=== PATIENT | female | born 1990 | race Caucasian/White ===

== ENCOUNTER → 2018-05-29 15:05 | Outpatient (CLI) | payer OTHER, SELFPAY ==
[2018-05-29 17:13] LABS: Absolute Lymphocyte Count 1.44 X10^3/ul (0.83-4.51); Absolute Neutrophil Count 5.1 X10^3/uL (2.0-7.7); Basophil# 0.02 X10^3/uL; Basophil% 0.3 % (0-1); Eosinophil# 0.17 X10^3/uL; Eosinophils% 2.4 % (0-5); Hematocrit 38.1 % (37-47); Hemoglobin 12.8 g/dl (12.0-15.0); Lymphocyte # 1.44 X10^3/ul (4.0); Lymphocyte % 19.9 % (19-41); Mean Corp Hgb Conc 33.6 g/gl (32-36); Mean Corpuscular Volume 95.3 fL (81-99); Mean Platelet Vol. 10.1 fl (6.2-12.0); Monocyte# 0.46 X10^3/uL; Monocyte% 6.4 % (0-10); Neutrophil # 5.14 X10^3/uL (2.7-7.7); Platelet Count 250 K/mm3 (150-450); RBC Distribution Width CV 11.7 % (11.6-14.6); RBC Distribution Width SD 40.4 fl (35.1-43.9); White Blood Count 7.2 K/mm3 (4.4-11.0)
[2018-05-29 17:14] LABS: POSITIVE COUNT NO; POSITIVE DIFFERENTIAL NO; POSITIVE MORPHOLOGY NO
[2018-05-30 05:04] LABS: Chlamydia Trachomatis by PCR Negative (Negative); Neisserai gonorrhoeae by PCR Negative (Negative); Probe Check PASS; Sample Adequacy Control PASS; Specimen Processing Control PASS
[2018-05-30 09:10] LABS: HIV - WCH Non-Reactive (Nonreactive); Rubella IgG 162.4 IU/mL
[2018-06-01 01:02] LABS: Rapid Plasmin Reagin (RPR) NONREACTIVE (NONREACTIVE)
[2018-06-01 12:07] LABS: HCV Quant. RNA PCR HCV Not Detected IU/mL (.)
[2018-06-01 13:23] LABS: HEPATITIS B SURFACE AG Negative (Negative)
[2018-06-06 11:33] LABS: HPV APTIMA, High Risk Negative (Negative)
[2018-06-06 11:41] LABS: HPV Reflexed? YES, CHARGE PATIENT
== END ==
PROVIDERS: Visit Provider Nurse Practitioner Women's Health
DX: O09.90 Supervision of high risk pregnancy, unspecified, unspecified trimester (principal); Z12.4 Encounter for screening for malignant neoplasm of cervix
CPT/HCPCS: 85025; 86592; 86703; 86762; 86850; 86900; 87086; 87088; 87340; 87491; 87522; 87591; 87624; 88175; G0145

== ENCOUNTER → 2018-10-11 15:58 | Outpatient (CLI) | payer OTHER, SELFPAY ==
[2018-10-11 17:38] LABS: Absolute Lymphocyte Count 1.56 X10^3/ul (0.83-4.51); Absolute Neutrophil Count 5.9 X10^3/uL (2.0-7.7); Basophil# 0.01 X10^3/uL; Basophil% 0.1 % (0-1); Eosinophil# 0.09 X10^3/uL; Eosinophils% 1.1 % (0-5); Hematocrit 31.5 % (37-47); Hemoglobin 10.4 g/dl (12.0-15.0); Lymphocyte # 1.56 X10^3/ul (4.0); Lymphocyte % 19.5 % (19-41); Mean Corpuscular Volume 96.9 fL (81-99); Mean Platelet Vol. 9.2 fl (6.2-12.0); Monocyte# 0.47 X10^3/uL; Monocyte% 5.9 % (0-10); Neutrophil # 5.85 X10^3/uL (2.7-7.7); Neutrophil % 73.3 % (47-70); Platelet Count 273 K/mm3 (150-450); RBC Distribution Width CV 12.3 % (11.6-14.6); RBC Distribution Width SD 43.5 fl (35.1-43.9); Red Blood Count 3.25 M/mm3 (4.2-5.4)
[2018-10-11 17:46] LABS: POSITIVE COUNT NO; POSITIVE DIFFERENTIAL NO; POSITIVE MORPHOLOGY NO
[2018-10-11 18:03] LABS: Glucose Challenge Gest 1H 50g 125 mg/dL (70-140)
== END ==
PROVIDERS: Referring Provider Nurse Practitioner Women's Health; Visit Provider Nurse Practitioner Women's Health
DX: O09.90 Supervision of high risk pregnancy, unspecified, unspecified trimester (principal)
CPT/HCPCS: 36415; 82950; 85025

== ENCOUNTER → 2018-11-09 12:15 | Outpatient (CLI) | payer OTHER, SELFPAY ==
--- NOTE | 2018-11-09 12:18 | US_ITS ---
STUDY: SECOND AND THIRD TRIMESTER OBSTETRICAL ULTRASOUND - LIMITED REASON FOR EXAM: Female, 28 years old. Routine survey. LMP: March 31, 2018. PRIOR ULTRASOUND: None. TECHNIQUE: Transabdominal TECHNICAL QUALITY: Adequate. FINDINGS: There is a single intrauterine fetus. The fetus is in a cephalic presentation. There is demonstrated cardiac activity with a heart rate of 156-165 bpm. There is a normal amniotic fluid volume. The largest amniotic fluid pocket measures 3.0 cm x 4.6 cm. The amniotic fluid index (DIANNA) is 6.1 cm. This is lower limits of normal. The placenta is posterior in location and is not low lying. There are Grade 0 placental changes. The cervix measures 4.3 cm in length. BIOMETRY: BPD: 7.45 cm: 30 weeks, 0 days HC: 27.8 cm: 30 weeks, 3 days AC: 27.49 cm: 31 weeks, 4 days FL: 5.92 cm: 31 weeks, 0 days Age by LMP: 31 weeks, 6 days. RENO by LMP: January 05, 2019. age by current US: 30 weeks, 6 days. RENO by current US: January 12, 2019. Estimated weight: 1698 grams, +/- 248 grams, 18 percentile. Gender: Indeterminant US/OB Limited With Biometrics IMPRESSION: Single live intrauterine gestation with a mean gestational age of 30 weeks and 6 days. Amniotic fluid index is lower limits of normal. The referring physician was notified of the results. Electronically Signed: Ghassan Fleming MD at 13:27 EST , Service support ,
== END ==
PROVIDERS: Referring Provider Nurse Practitioner Women's Health; Visit Provider Nurse Practitioner Women's Health
DX: O36.5990 Maternal care for other known or suspected poor fetal growth, unspecified trimester, not applicable or unspecified (principal); Z3A.00 Weeks of gestation of pregnancy not specified
CPT/HCPCS: 76816

== ENCOUNTER → 2018-11-16 13:20 | Outpatient (CLI) | payer OTHER, SELFPAY ==
--- NOTE | 2018-11-16 13:26 | US_ITS ---
STUDY: SECOND AND THIRD TRIMESTER OBSTETRICAL ULTRASOUND - LIMITED REASON FOR EXAM: Female, 28 years old. well-being. Borderline normal amniotic fluid index. LMP: March 31, 2018. PRIOR ULTRASOUND: Comparison is made with prior examination dated November 09, 2018. TECHNIQUE: Transabdominal TECHNICAL QUALITY: Adequate. FINDINGS: There is a single intrauterine fetus. The fetus is in a cephalic presentation. There is demonstrated cardiac activity with a heart rate of 149/165 bpm. There is a normal amniotic fluid volume. The largest amniotic fluid pocket measures 3.8 cm x 1.7 cm. The amniotic fluid index (DIANNA) is 9.5 cm. The placenta is fundal in location. There are Grade 0 placental changes. The cervix measures 6.0 cm in length. US/OB Limited (No Biometrics) IMPRESSION: Amniotic fluid index of 9.5 cm. This is in the 10th percentile. Electronically Signed: Ghassan Fleming MD at 8:43 EST , Service support ,
== END ==
PROVIDERS: Referring Provider Obstetrics & Gynecology; Visit Provider Obstetrics & Gynecology
DX: O28.8 Other abnormal findings on antenatal screening of mother (principal); Z3A.00 Weeks of gestation of pregnancy not specified
CPT/HCPCS: 76815

== ENCOUNTER → 2018-12-11 09:04 | Outpatient (CLI) | payer OTHER, SELFPAY ==
[2018-12-07 13:46] VITALS: BMI 25.4
--- NOTE | 2018-12-11 09:05 | US_ITS ---
STUDY: SECOND AND THIRD TRIMESTER OBSTETRICAL ULTRASOUND - LIMITED REASON FOR EXAM: Female, 28 years old. Routine survey. LMP: March 31, 2018. PRIOR ULTRASOUND: Comparison is made with prior study dated November 16, 2018. TECHNIQUE: Transabdominal TECHNICAL QUALITY: Adequate. FINDINGS: There is a single intrauterine fetus. The fetus is in a cephalic presentation. There is demonstrated cardiac activity with a heart rate of 118 bpm. The largest amniotic fluid pocket measures 2.2 cm x 3.8 cm. The amniotic fluid index (DIANNA) is 6.5 cm. This is in the lower limits of normal for 36 weeks and 3 days. The placenta is posterior and fundal. There are Grade 1 placental changes. The cervix measures 3.8 cm in length. BIOMETRY: BPD: 8.29 cm: 33 weeks, 3 days HC: 31.27 cm: 35 weeks, 1 days AC: 31.5 cm: 35 weeks, 4 days FL: 6.78 cm: 34 weeks, 6 days Age by LMP: 36 weeks, 3 days. RENO by LMP: January 05, 2019.. age by prior US: 35 weeks, 3 days. RENO by prior US: January 12, 2019. age by current US: 34 weeks, 6 days. RENO by current US: January 16, 2019. Estimated weight: 2570 grams, +/- 375 grams, 18 percentile. Gender: Indeterminant US/OB Limited With Biometrics IMPRESSION: Single live uterine gestation with a mean gestational age of 35 weeks and 3 days. The measurements obtained today following the normal expected range. The amniotic fluid index is within lower limits of normal. Electronically Signed: Ghassan Fleming, at 15:52 EST , Service support ,
== END ==
PROVIDERS: Referring Provider Obstetrics & Gynecology; Visit Provider Obstetrics & Gynecology
DX: O09.90 Supervision of high risk pregnancy, unspecified, unspecified trimester (principal)
CPT/HCPCS: 76816

== ENCOUNTER → 2018-12-14 17:11 | Outpatient (CLI) | payer OTHER, SELFPAY ==
[2018-12-14 11:55] VITALS: BMI 25.4
== END ==
PROVIDERS: Referring Provider Obstetrics & Gynecology; Visit Provider Obstetrics & Gynecology
DX: O09.90 Supervision of high risk pregnancy, unspecified, unspecified trimester (principal); Z3A.00 Weeks of gestation of pregnancy not specified
CPT/HCPCS: 87081

== ENCOUNTER → 2018-12-18 14:01 | Outpatient (CLI) | payer OTHER, SELFPAY ==
[2018-12-07 13:46] VITALS: BMI 25.4
[2018-12-14 11:55] VITALS: BMI 25.4
--- NOTE | 2018-12-18 14:03 | US_ITS ---
STUDY: SECOND AND THIRD TRIMESTER OBSTETRICAL ULTRASOUND - LIMITED REASON FOR EXAM: Female, 28 years old. Assessment of the amniotic fluid index. LMP: March 31, 2018. PRIOR ULTRASOUND: Comparison is made with prior study dated December 11, 2018. TECHNIQUE: Transabdominal TECHNICAL QUALITY: Adequate. FINDINGS: There is a single intrauterine fetus. The fetus is in a cephalic presentation. There is demonstrated cardiac activity with a heart rate of 135 bpm. There is a normal amniotic fluid volume. The largest amniotic fluid pocket measures 3.7 cm x 4.9 cm. The amniotic fluid index (DIANNA) is 8.6 cm. The placenta is fundal and posterior in location. There are Grade 2 placental changes. The cervix measures 2.9 cm in length. Age by LMP: 37 weeks, 3 days. RENO by LMP: January 05, 2019. age by prior US: 36 weeks, 3 days. RENO by prior US: January 12, 2019. US/OB Limited (No Biometrics) IMPRESSION: The amniotic fluid is normal for the gestational age. Electronically Signed: Ghassan Fleming, at 16:00 EST , Service support ,
== END ==
PROVIDERS: Referring Provider Obstetrics & Gynecology; Visit Provider Obstetrics & Gynecology
DX: O28.0 Abnormal hematological finding on antenatal screening of mother (principal); O41.90X0 Disorder of amniotic fluid and membranes, unspecified, unspecified trimester, not applicable or unspecified; Z3A.00 Weeks of gestation of pregnancy not specified
CPT/HCPCS: 76815

== ENCOUNTER 2018-12-28 14:40 | Outpatient (CLI) | payer OTHER, SELFPAY ==
[2018-12-27 16:27] VITALS: BMI 25.4
--- NOTE | 2018-12-28 11:01 | US_ITS ---
STUDY: SECOND AND THIRD TRIMESTER OBSTETRICAL ULTRASOUND - LIMITED REASON FOR EXAM: Female, 28 years old. Routine survey. LMP: March 31, 2018. PRIOR ULTRASOUND: Comparison is made with prior study dated December 18, 2018. TECHNIQUE: Transabdominal TECHNICAL QUALITY: Adequate. FINDINGS: There is a single intrauterine fetus. The fetus is in a cephalic presentation. There is demonstrated cardiac activity with a heart rate of 139 bpm. There is a normal amniotic fluid volume. The largest amniotic fluid pocket measures 2.2 cm x 2.9 cm. The amniotic fluid index (DIANNA) is 8.2 cm. The placenta is fundal and posterior in location. There are Grade 2 placental changes. The cervix measures 3.4 cm in length. BIOMETRY: BPD: 9.1 cm: 36 weeks, 6 days HC: 32.9 cm: 37 weeks, 3 days AC: 31.5 cm: 35 weeks, 3 days FL: 7.2 cm: 36 weeks, 6 days Age by LMP: 38 weeks, 6 days. RENO by LMP: January 05, 2019. age by prior US: 37 weeks, 2 days. RENO by prior US: January 16, 2019. age by current US: 36 weeks, 5 days. RENO by current US: January 20, 2019. Estimated weight: 2856 grams, +/- 417 grams, 10 percentile. US/OB Limited With Biometrics IMPRESSION: Single live uterine gestation with a mean gestational age of 37 weeks and 2 days. The fetus falls within the 10 percentile. Electronically Signed: Ghassan Fleming, at 12:41 EDT , Service support ,
[2018-12-28 15:44] VITALS: BMI 26.6
--- NOTE | 2018-12-31 02:58 | OB.TRI.PN_ITS ---
Progress Notes Date of Service: 12/28/18 Progress Note: nst secondary to IUGR fht 130 moderate variability reactive no decelerations category I tracing [place]: regular dc home kick counts plan IOL 39 weeks
== END 2018-12-28 16:10 | disposition home or self-care (01) ==
LOC: OPUS 14:45 → WPOUT 14:46 → WP 14:47
PROVIDERS: Referring Provider Obstetrics & Gynecology; Visit Provider Obstetrics & Gynecology
DX: O36.5990 Maternal care for other known or suspected poor fetal growth, unspecified trimester, not applicable or unspecified (principal); Z3A.00 Weeks of gestation of pregnancy not specified
CPT/HCPCS: 59025; 76816

== ENCOUNTER 2018-12-29 11:35 | Inpatient (IN) | payer OTHER, SELFPAY ==
[2018-12-28 15:44] VITALS: BMI 26.6
[2018-12-29 11:44] VITALS: BMI 26.9
[2018-12-29] MEDS: Lactated Ringers 1,000 ML 50 ML IV ×3 (12:05→21:09)
[2018-12-29 12:28] LABS: Hemoglobin 11.3 g/dl (12.0-15.0); Mean Corp Hgb Conc 33.2 g/gl (32-36); Mean Corpuscular Hgb 32.1 pg (27.0-32.0); Mean Corpuscular Volume 96.6 fL (81-99); Mean Platelet Vol. 9.6 fl (6.2-12.0); Platelet Count 229 K/mm3 (150-450); RBC Distribution Width CV 13.2 % (11.6-14.6); Red Blood Count 3.52 M/mm3 (4.2-5.4); White Blood Count 7.8 K/mm3 (4.4-11.0)
[2018-12-29 12:33] LABS: Scan Indicated on CBC? Y/N NO
[2018-12-29] MEDS: Oxytocin 30 units/NS 500 ml 30 UNITS/500 ML IV.SOLN IV (13:08)
[2018-12-29] MEDS: fentaNYL-bupivacaine (epidural) 100 ML BAG EPIDURAL (18:56)
--- NOTE | 2018-12-29 19:37 | PCM.HP.OB ---
- Problem List (1) Anemia affecting Status: Acute Qualifiers: Comment: check cbc at 36 weeks (2) Status: Acute Qualifiers: Comment: genetic, carrier, and NTD screening declined. anatomy US normal. (3) Supervision of high-risk Status: Acute Qualifiers: Comment: PRR RENO 01/05/19 girl Ashutosh PC:Jose Spouse:Silvino (4) History of LEEP (loop electrosurgical excision procedure) of cervix complicating Status: Acute Qualifiers: Comment: check cervical length at us/normal US History Date of Admission: 12/29/18 Final RENO: 01/05/19 Gestational age: 39 Weeks and 0 Days History of this : This is a 28 year-old, at 39 weeks gestational age presents with IOL for IUGER> she denies any vb lof good fm no regular ctx. Medical History: Medical History (Last Reviewed 12/27/18 @ 16:27 by Pallavi Shen) Abnormal Pap smear of cervix R87.619 Surgical History: Surgical History (Last Reviewed 12/27/18 @ 16:27 by Pallavi Shen) S/P LEEP Z98.890 S/P left knee surgery Z98.890 reconstructive Allergies casein Allergy (Mild, Verified 12/28/18 15:47) fatigue, migraines, acne whey Allergy (Mild, Verified 12/28/18 15:47) fatigue, migraines, acne Home Medications: Home Medications docosahexanoic acid 200 mg capsule 1 tab PO DAILY 05/29/18 ferrous sulfate 325 mg (65 mg iron) tablet 325 mg PO DAILY tab 10/26/18 Smoking Status: Never smoker Number of Fetus(es): 1 Heart Tracin-120 moderate variability reactive no decelerations category I tracing [place]: regular History Past Pregnancies: Past Pregnancies previous uncomplicated Labs: Mom's Labs & Results 12/29/18 12/29/18 12:05 12:05 WBC 7.8 RBC 3.52 L Hgb 11.3 L Hct 34.0 L MCV 96.6 MCH 32.1 H MCHC 33.2 RDW 13.2 RDW Differential 46.0 H Plt Count 229 MPV 9.6 Blood Type B POSITIVE Antibody Screen NEGATIVE Course Did the patient receive Yes care? Labs Blood Type: B RH: POSITIVE RPR/VDRL/Syphilis Nonreactive Rubella status Immune HbSAg Negative Date Done: 05/29/18 Chlamydia Negative Gonorrhea Negative HIV/AIDS Non-Reactive Group B Strep: Negative Current Obstetrical History Gestational Diabetes No Incompetent Cervix No Infertility No IUGR Yes Macrosomia No Hypertension/Pre-eclampsia No Placenta Previa/Abruption No PTL/PROM No Uterine anomaly No Oligohydramnios No: borderline off and on Polyhydramnios No Multiple gestation No Past Medical History Asthma No Diabetes No Hypertension No Heart disease No Mitral valve prolapse No Neurologic/Seizure disorder/ No Migraines Kidney disease No Liver disease No Varicosities No Clotting disorders/Hx of DVT No Thyroid Dysfunction No Other medical diseases No Psychiatric disorders No Major trauma No Abnormal PAP smear No Sleep apnea No Mammogram in the last 2 years No Social History Marital Status: Alleged father silvino malagon Hx Smoking No Smoking Status Never smoker Expected Delivery Method: Spontaneous Vaginal Review of Systems Constitutional: Denies: Fever, Malaise Eyes: Denies: Blurred vision, Vision Change HEENT: Denies: Head Aches, Visual Changes Cardiovascular: Denies: Chest Pain, Palpitations Respiratory: Denies: Cough, Shortness of Breath, Wheezing Gastrointestinal: Denies: Abdominal Pain, Diarrhea, Nausea, Vomiting Genitourinary: Denies: Dysuria, Hematuria Musculoskeletal: Denies: Joint Pain, Muscle pain Skin: Denies: Lesions, Rash Neurological: Denies: Blurred vision, Focal weakness, Headaches Psychiatric: Denies: Anxiety, Depression Endocrine: Denies: Heat/ Cold Intolerance Hematologic/ Lymphatic: Denies: Easy Bruising, Easy Bleeding Physical Exam General: Alert, Cooperative, No apparent distress HEENT: Atraumatic, Normocephalic. Negative for: Thyromegaly, Lymphadenopathy Cardiovascular: Regular rate Lungs: Normal air movement Abdomen: Soft, Non Tender, Gravid Neurological: Deep Tendon Reflexes 2+/4 and Symmetrical, Neuro grossly intact. Negative for: Clonus [employer]: Normal external genitalia. Negative for: Vulvar lesions Estimated gestational size: Appropriate for gestational size Presentation: Cephalic Assessment/Plan All Active Problems (Last Reviewed 12/27/18 @ 16:27 by Pallavi Shen) Anemia affecting (Acute) (Acute) Supervision of high-risk (Acute) History of LEEP (loop electrosurgical excision procedure) of cervix complicating (Acute) This is a 28 year-old, , at 39 weeks gestational age presents IOL iugr Patient presents IOL, plan management for , pitocin/AROM now. Pain management: epidural. GBS negative. Management of any complications: IUGR I have reviewed the [facility] and made any clinically relevant updates.
[2018-12-29] MEDS: fentaNYL 100 MCG/2 ML Ampul IV (23:19)
[2018-12-29] MEDS: Oxytocin 30 units/NS 500 ml 30 UNITS/500 ML IV.SOLN 334 UNITS IV (23:35)
--- NOTE | 2018-12-29 23:49 | PCM.OB.VAG ---
- Problem List (1) Anemia affecting Status: Acute Qualifiers: Comment: check cbc at 36 weeks (2) Status: Acute Qualifiers: Comment: genetic, carrier, and NTD screening declined. anatomy US normal. (3) Supervision of high-risk Status: Acute Qualifiers: Comment: PRR RENO 01/05/19 girl Ashutosh PC:Jose Spouse:Silvino (4) History of LEEP (loop electrosurgical excision procedure) of cervix complicating Status: Acute Qualifiers: Comment: check cervical length at us/normal US Vaginal Delivery Maternal Presentation: Medically Indicated Induction iol iugr Amniotic Membrane Rupture Type: Spontaneous Amniotic Fluid Description: Clear Final RENO: 01/05/19 Gestational age: 39 Weeks and 0 Days Date of Procedure: 12/29/18 Pre-Operative Diagnosis: iol iugr Post-Operative Diagnosis: same Surgery/ Procedure Performed: Spontaneous Vaginal Delivery Type of Anesthesia: Epidural Description of Procedure: Patient began pushing and delivered the head in the JOSE presentation. The head was delivered atraumatically. The anterior and posterior shoulders delivered without complication followed by the rest of the infant and the was placed on the maternal abdomen. Delayed cord clamping was employed for approximately 60 seconds. Cord was clamped and cut and gentle traction was applied to the cord and the placenta delivered spontaneously immediately following it was noted to be intact with three-vessel cord. The perineum and vagina were inspected and noted to have no laceration. EBL was 100 cc. Patient and infant tolerated delivery well. Presentation: JOSE Placental Delivery Description: Spontaneous Placenta Disposition: [facility] Cord Vessel Description: 3 Vessels Estimated Blood Loss: 100 Infant A gender: Female Episiotomy Description: None Laceration: None Medications given after delivery: IV Pitocin Complications: None
[2018-12-30] MEDS: Oxytocin 30 units/NS 500 ml 30 UNITS/500 ML IV.SOLN 167 UNITS IV (00:05)
[2018-12-30 04:40] VITALS: BP 109/62; PULSE 89; RESP 16; TEMP 36.4; O2SAT 95
[2018-12-30] MEDS: Naproxen 250 MG Tablet PO ×3 (06:41→23:59)
[2018-12-30 07:30] VITALS: BP 92/57; PULSE 77; RESP 16; TEMP 37.5; O2SAT 96
[2018-12-30] MEDS: Ferrous Sulfate 325 MG Tablet PO (08:04)
[2018-12-30 12:30] VITALS: BP 95/60; PULSE 87; RESP 16; TEMP 36.6
--- NOTE | 2018-12-30 13:30 | PCM.PN.OB ---
Subjective: doing well no complaints pain controlled no CP SOB N V ambulating well tolerating po lochia moderate, going well - Physical Exam General: Alert, Oriented x3 Vital Signs Temp Pulse Resp BP Pulse Ox 99.5 F H 77 16 92/57 L 96 12/30/18 07:30 12/30/18 07:30 12/30/18 07:30 12/30/18 07:30 12/30/18 07:30 Oxygen Delivery Method Room Air Weight: 151 lb 10.848 oz Body Mass Index (BMI) 26.9 Intake and Output for Last 24 Hours 12/28/18 12/29/18 12/30/18 23:59 23:59 23:59 Intake Total 2200 / 2200 800 / 800 Output Total 600 / 600 1100 / 1100 Balance 1600 / 1600 -300 / -300 Medical Necessity - Tobacco Use Smoking Status: Never smoker Assessment/Plan All Active Problems (Last Reviewed 12/27/18 @ 16:27 by Pallavi Shen) Anemia affecting (Acute) (Acute) Supervision of high-risk (Acute) History of LEEP (loop electrosurgical excision procedure) of cervix complicating (Acute) s/p PPD # 1 1. routine post delivery care 2. breast feeding- support given 3. rh positive 4. rubella immune
[2018-12-30] MEDS: Prenatal Vits Tablet 1 TABLET PO (13:32)
[2018-12-30] MEDS: Acetaminophen 500 MG Tablet 1000 MG PO (13:33)
[2018-12-30 17:00] VITALS: BP 110/78; PULSE 76; RESP 16; TEMP 36.4
[2018-12-30] MEDS: Senna/Docusate Sodium 1 Tablet PO (19:57)
[2018-12-30 20:00] VITALS: BP 117/44; PULSE 67; RESP 17; TEMP 36.4
[2018-12-30 23:55] VITALS: BP 103/63; PULSE 71; RESP 17; TEMP 36.5
[2018-12-31 04:15] VITALS: BP 101/59; PULSE 69; RESP 16; TEMP 36.6
--- NOTE | 2018-12-31 07:29 | PCM.PN.OB ---
Subjective: doing well no complaints pain controlled no CP SOB N V ambulating well tolerating po lochia moderate, bottle feeding. Plans home today - Physical Exam General: Alert, Oriented x3 Abdomen: Soft, Non Tender, - - FF below U Vital Signs Temp Pulse Resp BP Pulse Ox 97.8 F 69 16 101/59 L 96 12/31/18 04:15 12/31/18 04:15 12/31/18 04:15 12/31/18 04:15 12/30/18 07:30 Oxygen Delivery Method Room Air Weight: 151 lb 10.848 oz Body Mass Index (BMI) 26.9 Intake and Output for Last 24 Hours 12/29/18 12/30/18 12/31/18 23:59 23:59 23:59 Intake Total 2200 / 2200 800 / 800 Output Total 600 / 600 1100 / 1100 Balance 1600 / 1600 -300 / -300 Medical Necessity - Tobacco Use Smoking Status: Never smoker Assessment/Plan All Active Problems (Last Reviewed 12/27/18 @ 16:27 by Pallavi Shen) Anemia affecting (Acute) (Acute) Supervision of high-risk (Acute) History of LEEP (loop electrosurgical excision procedure) of cervix complicating (Acute) s/p PPD # 2 1. routine post delivery care 2. rh positive 3. rubella immune 4. Home today
--- NOTE | 2018-12-31 07:31 | DCINST_ITS ---
Additional Instructions: If you experience any of the following, contact your healthcare provider. * Bleeding that soaks a pad every hour for 2 hours * Fever 100.4 or higher * Unrelieved incision or abdominal pain * Swelling, redness, discharge or bleeding from your incision or episiotomy site * Your incision begins to separate * Problems urinating (including inability to urinate or burning while urinating). * Visual changes * Severe headache * Flu-like symptoms * Pain or redness in one of both of your breasts * Pain, warmth, tenderness or swelling in your legs, especially the calf area * Frequent nausea and vomiting * Symptoms of depression or anxiety If you experience any of the following, call 911 or go to the nearest Emergency Room. * Chest pain * Problems breathing * Seizure activity * Partial or complete paralysis of a body part, slurred speech, weakness or drooping of the face, or a sudden inability to walk or hold your balance Allergies/Adverse Reactions: Allergies casein Allergy (Mild, Verified 12/28/18 15:47) fatigue, migraines, acne whey Allergy (Mild, Verified 12/28/18 15:47) fatigue, migraines, acne Medications to take at Discharge docosahexanoic acid 200 mg capsule 1 tab PO DAILY 05/29/18 ferrous sulfate 325 mg (65 mg iron) tablet 325 mg PO DAILY tab 10/26/18 Primary Care Physician: Care Physician,No Primary [Primary Care Provider] - Test Results: Test results from this visit will be discussed in further detail at your follow- up appointment, if applicable.
--- NOTE | 2018-12-31 07:31 | PCM.DCVAG ---
Additional Instructions: If you experience any of the following, contact your healthcare provider. Bleeding that soaks a pad every hour for 2 hours Fever 100.4 or higher Unrelieved incision or abdominal pain Swelling, redness, discharge or bleeding from your incision or episiotomy site Your incision begins to separate Problems urinating (including inability to urinate or burning while urinating). Visual changes Severe headache Flu-like symptoms Pain or redness in one of both of your breasts Pain, warmth, tenderness or swelling in your legs, especially the calf area Frequent nausea and vomiting Symptoms of depression or anxiety If you experience any of the following, call 911 or go to the nearest Emergency Room. Chest pain Problems breathing Seizure activity Partial or complete paralysis of a body part, slurred speech, weakness or drooping of the face, or a sudden inability to walk or hold your balance Allergies/Adverse Reactions: Allergies casein Allergy (Mild, Verified 12/28/18 15:47) fatigue, migraines, acne whey Allergy (Mild, Verified 12/28/18 15:47) fatigue, migraines, acne Medications to take at Discharge docosahexanoic acid 200 mg capsule 1 tab PO DAILY 05/29/18 ferrous sulfate 325 mg (65 mg iron) tablet 325 mg PO DAILY tab 10/26/18 Primary Care Physician: Care Physician,No Primary [Primary Care Provider] - Test Results: Test results from this visit will be discussed in further detail at your follow-up appointment, if applicable.
[2018-12-31 08:00] VITALS: BP 92/54; PULSE 77; RESP 20; TEMP 36.7
[2018-12-31] MEDS: Prenatal Vits Tablet 1 TABLET PO (12:12)
[2018-12-31] MEDS: Naproxen 250 MG Tablet PO (12:12)
[2018-12-31] MEDS: Ferrous Sulfate 325 MG Tablet PO (12:12)
--- NOTE | 2019-01-08 17:12 | NURSING ---
Mother had some questions about her bleeding on follow up phone call, states odor but no fever. will call OB doctor if increased pain or fever or if not continuing to decrease. States is able to wear her pad 3-4 hours and is wearing a smaller pad. States her labor nurse was awesome but cannot remember her name.
== END 2018-12-31 12:40 | disposition home or self-care (01) | DRG 807 ==
PROVIDERS: Admitting Provider Obstetrics & Gynecology; Referring Provider Obstetrics & Gynecology; Visit Provider Obstetrics & Gynecology
DX: O36.5930 Maternal care for other known or suspected poor fetal growth, third trimester, not applicable or unspecified (principal); Z37.0 Single live birth; O99.02 Anemia complicating childbirth; D64.9 Anemia, unspecified; Z3A.39 39 weeks gestation of pregnancy
CPT/HCPCS: 59025; 59050; 85027; 86850; 86900; 99218; J7120; G0378

== ENCOUNTER 2019-01-12 15:53 | Day surgery (SDC) | payer OTHER, SELFPAY ==
[2019-01-12] VITALS (11 sets, daily range): BP systolic 92–109; BP diastolic 53–84; PULSE 63–133; RESP 12–18; TEMP 36.7–37; O2SAT 97–100; BMI 22.3; BMI 23.0
--- NOTE | 2019-01-12 | POC_PTH ---
PATIENT: KEIKO SOSA [place] [facility] [place][id number] AGE/SX: 28/F ROOM: RE01/12/[address]: Dr. Katerina Bedoya MD : 1990 BED: DIS: 01/13/2019 SPEC #: [id number] RECD: 01/14/19 07:14 STATUS: KISHORE TESSA #: [id number] TAYLA: 01/12/19 00:[address]: Katerina Howard DEPT: SURGICAL PATHOLOGY RECD BY: Lasha Samano ENTERED: 01/14/19 09:20 SP TYPE: PROD CONC OTHR DR: No Primary Care Phys Tissues: Product of conception, NOS Procedures: Surgery Specimen Level IV HEADER OPERATION: Dilation and curettage, suction PRE-OP DIAGNOSIS: Retained products of conception, two weeks TISSUE SUBMITTED: Retained products of conception MICROSCOPIC DIAGNOSIS Retained products of conception: Fragments of blood clots and inflamed endometrium and superficial myometrium. Placental tissue is not identified. See comment. WANDA:kassie 01/15/19 COMMENT Clinical correlation and appropriate follow up are necessary. MICROSCOPIC DESCRIPTION Slides are reviewed. GROSS DESCRIPTION Received in fixative is one container labeled with the patient's name and designated retained products of conception. The specimen consists of multiple fragments of hemorrhagic dark pugh soft tissue that in aggregate measure 10.5 x 10 x 2 cm. parts are not grossly recognized. [place] portions are submitted in three cassettes. / AM:kassie 01/14/19 TC:5 CPT: 44820
--- NOTE | 2019-01-12 16:30 | US_ITS ---
STUDY: ULTRASOUND TRANSVAGINAL CLINICAL: Female, 28 years old. VERY HEAVY BLEEDING 2 WEEKS POST TECHNIQUE: Transabdominal and Transvaginal COMPARISON: None. FINDINGS: Anteverted uterus which is enlarged measuring 13.3 x 9.4 x 7.2 cm. No uterine masses are seen. Heterogeneous and very thickened endometrial echoes measuring 4.4 cm. Findings may represent retained products of conception. No endometrial fluid. Normal uterine cervix. Right ovary is not seen. Normal left ovary, measuring 3.7 x 2.0 x 1.8 cm. There are multiple follicles without a dominant cyst. There is mild free fluid in the pelvis. US/Transvaginal Non- IMPRESSION: Heterogeneous thickened endometrial echoes, possible retained products. Electronically Signed: Marc Maguire MD at 19:19 EDT , Service support ,
--- NOTE | 2019-01-12 16:31 | ED.VISSUMM ---
- ER Visit Summary Date of Service: 01/12/19 Chief Complaint: vaginal bleeding History of Present Illness: The patient is a 28 F who presents for vaginal bleeding that started this morning. Patient had a uncomplicated vaginal delivery 2 weeks ago. Patient has had no issues until this morning when she began having severe intermittent cramping and heavy vaginal bleeding with large clots. Patient is soaking greater than 1 pad in less than an hour. Patient is having lightheadedness. She has a history of anemia at baseline. Patient tried Aleve for the crampy pain. She states it feels like a bad menstrual cramps. She denies any fever, chest pain, shortness of breath, nausea or vomiting. Physical Examination: Vital signs: afebrile, tachycardic, blood pressure on the low end of normal, no hypoxia on room air General: well nourished, well developed, in no distress Skin: warm, dry, no rash, skin is pale but conjunctivae are pink HEENT: normocephalic and atraumatic; PERRL, EOMI, moist mucous membranes Cardiovascular: Tachycardic rate and rhythm without murmurs, no peripheral edema, 2+ pulses all distal extremities Respiratory: No increased work of breathing, lungs are clear to auscultation bilaterally, no rales, rhonchi or wheezing Abdominal: Abdomen is soft, nontender with normoactive bowel sounds, no guarding or rebound, no masses : MSK: Moves all extremities, no deformities, normal strength Neuro: Awake and alert, oriented ?4. No facial droop, sensation and motor function intact and symmetric Test Results: Abnormal Lab Results 01/12/19 01/12/19 01/12/19 16:17 16:17 16:17 WBC 13.4 H RBC 4.33 Hgb 13.6 Hct 40.9 MCV 94.5 MCH 31.4 MCHC 33.3 RDW 12.0 RDW Differential 40.9 Plt Count 398 MPV 9.5 Immature Gran % (Auto) 0.300 Neut % (Auto) 78.7 H Lymph % (Auto) 15.[address] [place] % (Auto) 4.0 Eos % (Auto) 1.0 Baso % (Auto) 0.1 Absolute Neuts (auto) 10.6 H Absolute Lymphs (auto) 2.13 Total Counted Not Reportable PT INR APTT Fibrinogen Sodium 139 Potassium 3.6 Chloride 109 H Carbon Dioxide 22.0 Anion Gap 8 BUN 16 Creatinine 0.93 Estim Creat Clear Calc 77.08 Est GFR (MDRD) Af Amer 92 Est GFR (MDRD) Non-Af 76 BUN/Creatinine Ratio 17.2 Glucose 143 H Calcium 8.4 L Blood Type B POSITIVE A1 Antigen Typing Rho(D) Type Antibody Screen Crossmatch 01/12/19 01/12/19 01/12/19 16:17 16:17 23:00 WBC 10.5 RBC 3.06 L Hgb 9.9 L Hct 29.6 L MCV 96.7 MCH 32.4 H MCHC 33.4 RDW 12.3 RDW Differential 43.2 Plt Count 280 MPV 9.0 Immature Gran % (Auto) Neut % (Auto) Lymph % (Auto) [place] % (Auto) Eos % (Auto) Baso % (Auto) Absolute Neuts (auto) Absolute Lymphs (auto) Total Counted PT INR APTT Fibrinogen Sodium Potassium Chloride Carbon Dioxide Anion Gap BUN Creatinine Estim Creat Clear Calc Est GFR (MDRD) Af Amer Est GFR (MDRD) Non-Af BUN/Creatinine Ratio Glucose Calcium Blood Type Cancelled Cancelled A1 Antigen Typing Cancelled Cancelled Rho(D) Type Cancelled Cancelled Antibody Screen NEGATIVE Cancelled Crossmatch See Detail 01/12/19 23:10 WBC RBC Hgb Hct MCV MCH MCHC RDW RDW Differential Plt Count MPV Immature Gran % (Auto) Neut % (Auto) Lymph % (Auto) [place] % (Auto) Eos % (Auto) Baso % (Auto) Absolute Neuts (auto) Absolute Lymphs (auto) Total Counted PT 17.0 H INR 1.4 APTT 30.9 Fibrinogen 182 L Sodium Potassium Chloride Carbon Dioxide Anion Gap BUN Creatinine Estim Creat Clear Calc Est GFR (MDRD) Af Amer Est GFR (MDRD) Non-Af BUN/Creatinine Ratio Glucose Calcium Blood Type A1 Antigen Typing Rho(D) Type Antibody Screen Crossmatch Clinical Impression(s) from Imaging Studies Transvaginal US 01/12/19 16:30 IMPRESSION: Heterogeneous thickened endometrial echoes, possible retained products. Electronically Signed: Marc Maguire MD at 19:19 EDT , Service support , Medications Given Ketorolac Tromethamine (Toradol) 15 mg IV X1 ONE Stop: 01/12/19 16:52 Last Admin: 01/12/19 17:13 Dose: 15 mg Misoprostol (Cytotec) 800 mcg RECTAL X1 ONE Stop: 01/12/19 17:26 Last Admin: 01/12/19 17:38 Dose: 800 mcg Morphine Sulfate () 4 mg IV X1 ONE Stop: 01/12/19 17:28 Last Admin: 01/12/19 17:32 Dose: 4 mg Ondansetron HCl (Zofran) 4 mg IV TID PRN PRN PRN Reason: NAUSEA Emergency Department Course and Treatment: Patient was offered and declined pain medication. Lab work performed including type and screen and CBC. Patient did require pain medication for worsening pain and was given Toradol. Pelvic exam performed and showed a large amount of blood in the vaginal vault and large clots. Blood and clots were suctioned out, and steady oozing of blood was noted at the cervix. No vaginal lacerations noted. After the pelvic exam, patient's pain worsened and she was given morphine. Pelvic ultrasound performed to look for any retained products of conception did show heterogenous material in the uterus concerning for retained products of conception. Dr. Martine Bedoya had been consulted and recommended giving rectal misoprostol, and on reevaluation, patient did not have any improvement in the bleeding. Patient was admitted to Dr. Martinez for emergent D&C. Treatment Plan: [] Disposition: [] Impression: Heavy vaginal bleeding, retained products of conception This note was generated with [employer] software. It may contain incorrect words, spelling, and punctuation that were not noted in review of the chart prior to signing ED Disposition - Plan for ED Patient: Disposition: Acute Care Hospital [facility]
[2019-01-12 16:40] LABS: Absolute Lymphocyte Count 2.13 X10^3/ul (0.83-4.51); Absolute Neutrophil Count 10.6 X10^3/uL (2.0-7.7); Basophil# 0.02 X10^3/uL; Basophil% 0.1 % (0-1); Eosinophil# 0.13 X10^3/uL; Hematocrit 40.9 % (37-47); Hemoglobin 13.6 g/dl (12.0-15.0); Lymphocyte # 2.13 X10^3/ul (4.0); Lymphocyte % 15.9 % (19-41); Mean Corp Hgb Conc 33.3 g/gl (32-36); Mean Corpuscular Hgb 31.4 pg (27.0-32.0); Mean Corpuscular Volume 94.5 fL (81-99); Mean Platelet Vol. 9.5 fl (6.2-12.0); Monocyte# 0.54 X10^3/uL; Neutrophil # 10.55 X10^3/uL (2.7-7.7); Neutrophil % 78.7 % (47-70); Platelet Count 398 K/mm3 (150-450); RBC Distribution Width SD 40.9 fl (35.1-43.9); Red Blood Count 4.33 M/mm3 (4.2-5.4); White Blood Count 13.4 K/mm3 (4.4-11.0)
[2019-01-12 16:43] LABS: POSITIVE COUNT NO; POSITIVE DIFFERENTIAL NO; POSITIVE MORPHOLOGY NO
[2019-01-12 16:51] LABS: Anion Gap 8 (5-15); BUN 16 mg/dL (7-18); BUN/Creat Ratio 17.2 RATIO (10-20); Calcium,Total 8.4 mg/dL (8.5-10.1); Chloride 109 mmol/L (98-107); Creatinine, Serum 0.93 mg/dL (0.55-1.02); EST Glomerular Filtration Rate 76 mL/min (>60); Est Glom Filt Rate - Afr Amer 92 mL/min (>60); Estimated Creatinine Clearance 77.08 ml/min; Glucose 143 mg/dL (74-106); Potassium 3.6 mmol/L (3.5-5.1); Sodium Level 139 mmol/L (136-145)
[2019-01-12] MEDS: Ketorolac 15 MG/ML Vial IV (17:13)
[2019-01-12] MEDS: Morphine 4 MG/ML Syringe IV (17:32)
[2019-01-12] MEDS: miSOPROStol 200 MCG Tablet 800 MCG RECTAL (17:38)
--- NOTE | 2019-01-12 21:14 | PCM.HP.OB ---
- Problem List (1) Delayed hemorrhage Status: Acute (2) Retained products of conception with hemorrhage Status: Acute History Date of Admission: 12/29/18 History of this : This is a 28 year-old, G 2 P2 presents day 12 status post uncomplicated spontaneous vaginal delivery now with heavy vaginal bleeding. She reports heavy bleeding with increasing flow over the last week and earlier today began to pass large clots. She had blood through 3 maternity pads in an hour. She called the nurse practitioner on-call who advised her to come to the ER for further evaluation. The patient did report some lightheadedness now resolved. Denies chest pain, shortness of breath, palpitations. She does feel drained and fatigued. No weakness. She had severe cramping which has now subsided. She had a dose of 800 mcg of Cytotec per rectum in the ER. She notes that bleeding is worsened on standing and ambulation. Her infant is doing well. She is bottlefeeding. Medical History: Medical History (Last Reviewed 12/27/18 @ 16:27 by Pallavi Shen) Abnormal Pap smear of cervix R87.619 Surgical History: Surgical History (Last Reviewed 12/27/18 @ 16:27 by Pallavi Shen) S/P LEEP Z98.890 S/P left knee surgery Z98.890 reconstructive Allergies casein Allergy (Mild, Verified 12/28/18 15:47) fatigue, migraines, acne whey Allergy (Mild, Verified 12/28/18 15:47) fatigue, migraines, acne Home Medications: Home Medications docosahexanoic acid 200 mg capsule 1 tab PO DAILY 05/29/18 ferrous sulfate 325 mg (65 mg iron) tablet 325 mg PO DAILY tab 10/26/18 Smoking Status: Never smoker Alcohol: None History Past Pregnancies: Diagnostic Data Transvaginal US 01/12/19 16:30 IMPRESSION: Heterogeneous thickened endometrial echoes, possible retained products. Electronically Signed: Marc Maguire MD at 19:19 EDT , Service support , Labs: Mom's Labs & Results 01/12/19 01/12/19 01/12/19 16:17 16:17 16:17 WBC 13.4 H RBC 4.33 Hgb 13.6 Hct 40.9 MCV 94.5 MCH 31.4 MCHC 33.3 RDW 12.0 RDW Differential 40.9 Plt Count 398 MPV 9.5 Immature Gran % (Auto) 0.300 Neut % (Auto) 78.7 H Lymph % (Auto) 15.9 L [place] % (Auto) 4.0 Eos % (Auto) 1.0 Baso % (Auto) 0.1 Absolute Neuts (auto) 10.6 H Absolute Lymphs (auto) 2.13 Total Counted Not Reportable Sodium 139 Potassium 3.6 Chloride 109 H Carbon Dioxide 22.0 Anion Gap 8 BUN 16 Creatinine 0.93 Estim Creat Clear Calc 77.08 Est GFR (MDRD) Af Amer 92 Est GFR (MDRD) Non-Af 76 BUN/Creatinine Ratio 17.2 Glucose 143 H Calcium 8.4 L Blood Type B POSITIVE Antibody Screen 01/12/19 16:17 WBC RBC Hgb Hct MCV MCH MCHC RDW RDW Differential Plt Count MPV Immature Gran % (Auto) Neut % (Auto) Lymph % (Auto) [place] % (Auto) Eos % (Auto) Baso % (Auto) Absolute Neuts (auto) Absolute Lymphs (auto) Total Counted Sodium Potassium Chloride Carbon Dioxide Anion Gap BUN Creatinine Estim Creat Clear Calc Est GFR (MDRD) Af Amer Est GFR (MDRD) Non-Af BUN/Creatinine Ratio Glucose Calcium Blood Type Antibody Screen Pending Social History Alleged father pato malagon Hx Smoking No Smoking Status Never smoker Review of Systems Constitutional: Reports: Fatigue. Denies: Fever, Weakness Cardiovascular: Denies: Chest Pain, Light Headedness, Palpitations Respiratory: Denies: Shortness of Breath Gastrointestinal: Denies: Abdominal Pain, Nausea, Vomiting Gynecological: Reports: Vaginal bleeding Physical Exam Vitals: Vital Signs Temp Pulse Resp BP Pulse Ox 98.0 F 75 12 101/84 H 100 01/12/19 15:55 01/12/19 21:01 01/12/19 21:01 01/12/19 21:01 01/12/19 21:01 General: Alert, Oriented x3, Cooperative, No apparent distress HEENT: Atraumatic, Normocephalic Cardiovascular: Regular rate, Regular Rhythm, Normal S1, Normal S2 Lungs: Clear to auscultation, Normal air movement Abdomen: Soft, Non Tender, Non-Distended, - - Perineal pad moderately saturated Extremities:: No edema Neurological: Neuro grossly intact Assessment/Plan All Active Problems (Last Reviewed 12/27/18 @ 16:27 by Pallavi Shen) Delayed hemorrhage (Acute) Retained products of conception with hemorrhage (Acute) Anemia affecting (Acute) (Acute) Supervision of high-risk (Acute) History of LEEP (loop electrosurgical excision procedure) of cervix complicating (Acute) This is a 28 year-old, G [2], P [2] admitted with delayed hemorrhage with retained products of conception -hemodynamically stable. -Pelvic exam performed by ED Attending demonstrating copious blood clots on admission. -US reviewed with thickened endometrium c/w retained POCs. Findings discussed with patient and her . I advised her to proceed with suction dilatation and curettage. We discussed how the procedure is performed as well as risks including pain, uterine infection, uterine perforation with possible abdominal viscus injury or vascular injury requiring laparotomy or hysterectomy, scarring with possible hematometra, retained products of conception requiring additional medical management or repeat dilation and curettage. Benefits and alternatives of procedure were reviewed. Discussed anticipated postop recovery course. Patient desired to proceed and indicated blood transfusion was acceptable if necessary medically. -Consent signed. -Maintain n.p.o. -Nursing esters and emulsifiers supervisor and anesthesiology notified. Will await arrival of OR team to proceed with procedure. Code Visit Office Visits / Consults: [id number] OP Consult L3
--- NOTE | 2019-01-12 21:17 | ED.RN ---
REPORT GIVEN MICHELLE MAGAÑA.
--- NOTE | 2019-01-12 21:18 | HP.PCM_ITS ---
- Problem List (1) Delayed hemorrhage Status: Acute (2) Retained products of conception with hemorrhage Status: Acute History Date of Admission: 12/29/18 History of this : This is a 28 year-old, G 2 P2 presents day 12 status post uncomplicated spontaneous vaginal delivery now with heavy vaginal bleeding. She reports heavy bleeding with increasing flow over the last week and earlier today began to pass large clots. She had blood through 3 maternity pads in an hour. She called the nurse practitioner on-call who advised her to come to the ER for further evaluation. The patient did report some lightheadedness now resolved. Denies chest pain, shortness of breath, palpitations. She does feel drained and fatigued. No weakness. She had severe cramping which has now subsided. She ruiz d a dose of 800 mcg of Cytotec per rectum in the ER. She notes that bleeding is worsened on standing and ambulation. Her infant is doing well. She is bottlefeeding. Medical History: Medical History (Last Reviewed 12/27/18 @ 16:27 by Pallavi Shen) Abnormal Pap smear of cervix R87.619 Surgical History: Surgical History (Last Reviewed 12/27/18 @ 16:27 by Pallavi Shen) S/P LEEP Z98.890 S/P left knee surgery Z98.890 reconstructive Allergies casein Allergy (Mild, Verified 12/28/18 15:47) fatigue, migraines, acne whey Allergy (Mild, Verified 12/28/18 15:47) fatigue, migraines, acne Home Medications: Home Medications docosahexanoic acid 200 mg capsule 1 tab PO DAILY 05/29/18 ferrous sulfate 325 mg (65 mg iron) tablet 325 mg PO DAILY tab 10/26/18 Smoking Status: Never smoker Alcohol: None History Past Pregnancies: Diagnostic Data Transvaginal US 01/12/19 16:30 IMPRESSION: Heterogeneous thickened endometrial echoes, possible retained products. Electronically Signed: Marc Maguire MD at 19:19 EDT , Service support , Labs: Mom's Labs & Results 01/12/19 01/12/19 01/12/19 16:17 16:17 16:17 WBC 13.4 H RBC 4.33 Hgb 13.6 Hct 40.9 MCV 94.5 MCH 31.4 MCHC 33.3 RDW 12.0 RDW Differential 40.9 Plt Count 398 MPV 9.5 Immature Gran % (Auto) 0.300 Neut % (Auto) 78.7 H Lymph % (Auto) 15.9 L [place] % (Auto) 4.0 Eos % (Auto) 1.0 Baso % (Auto) 0.1 Absolute Neuts (auto) 10.6 H Absolute Lymphs (auto) 2.13 Total Counted Not Reportable Sodium 139 Potassium 3.6 Chloride 109 H Carbon Dioxide 22.0 Anion Gap 8 BUN 16 Creatinine 0.93 Estim Creat Clear Calc 77.08 Est GFR (MDRD) Af Amer 92 Est GFR (MDRD) Non-Af 76 BUN/Creatinine Ratio 17.2 Glucose 143 H Calcium 8.4 L Blood Type B POSITIVE Antibody Screen 01/12/19 16:17 WBC RBC Hgb Hct MCV MCH MCHC RDW RDW Differential Plt Count MPV Immature Gran % (Auto) Neut % (Auto) Lymph % (Auto) [place] % (Auto) Eos % (Auto) Baso % (Auto) Absolute Neuts (auto) Absolute Lymphs (auto) Total Counted Sodium Potassium Chloride Carbon Dioxide Anion Gap BUN Creatinine Estim Creat Clear Calc Est GFR (MDRD) Af Amer Est GFR (MDRD) Non-Af BUN/Creatinine Ratio Glucose Calcium Blood Type Antibody Screen Pending Social History Alleged father pato malagon Hx Smoking No Smoking Status Never smoker Review of Systems Constitutional: Reports: Fatigue. Denies: Fever, Weakness Cardiovascular: Denies: Chest Pain, Light Headedness, Palpitations Respiratory: Denies: Shortness of Breath Gastrointestinal: Denies: Abdominal Pain, Nausea, Vomiting Gynecological: Reports: Vaginal bleeding Physical Exam Vitals: Vital Signs Temp Pulse Resp BP Pulse Ox 98.0 F 75 12 101/84 H 100 01/12/19 15:55 01/12/19 21:01 01/12/19 21:01 01/12/19 21:01 01/12/19 21:01 General: Alert, Oriented x3, Cooperative, No apparent distress HEENT: Atraumatic, Normocephalic Cardiovascular: Regular rate, Regular Rhythm, Normal S1, Normal S2 Lungs: Clear to auscultation, Normal air movement Abdomen: Soft, Non Tender, Non-Distended, - - Perineal pad moderately saturated Extremities:: No edema Neurological: Neuro grossly intact Assessment/Plan All Active Problems (Last Reviewed 12/27/18 @ 16:27 by Pallavi Shen) Delayed hemorrhage (Acute) Retained products of conception with hemorrhage (Acute) Anemia affecting (Acute) (Acute) Supervision of high-risk (Acute) History of LEEP (loop electrosurgical excision procedure) of cervix complicating (Acute) This is a 28 year-old, G [2], P [2] admitted with delayed hemorrhage with retained products of conception -hemodynamically stable. -Pelvic exam performed by ED Attending demonstrating copious blood clots on admission. -US reviewed with thickened endometrium c/w retained POCs. Findings discussed with patient and her . I advised her to proceed with suction dilatation and curettage. We discussed how the procedure is performed as well as risks including pain, uterine infection, uterine perforation with possible abdominal viscus injury or vascular injury requiring laparotomy or hysterectomy, scarring with possible hematometra, retained products of conception requiring additional medical management or repeat dilation and curettage. Benefits and alternatives of procedure were reviewed. Discussed anticipated postop recovery course. Patient desired to proceed and indicated blood transfusion was acceptable if necessary medically. -Consent signed. -Maintain n.p.o. -Nursing steffen house supervisor and anesthesiology notified. Will await arrival of OR team to proceed with procedure. Code Visit Office Visits / Consults: [id number] OP Consult L3
[2019-01-12] MEDS: Methylergonovine 0.2 MG/ML Ampul IM (22:40)
[2019-01-12 23:18] LABS: Hematocrit 29.6 % (37-47); Hemoglobin 9.9 g/dl (12.0-15.0); Mean Corp Hgb Conc 33.4 g/gl (32-36); Mean Corpuscular Hgb 32.4 pg (27.0-32.0); Mean Corpuscular Volume 96.7 fL (81-99); Platelet Count 280 K/mm3 (150-450); RBC Distribution Width CV 12.3 % (11.6-14.6); RBC Distribution Width SD 43.2 fl (35.1-43.9); Red Blood Count 3.06 M/mm3 (4.2-5.4); Scan Indicated on CBC? Y/N NO; White Blood Count 10.5 K/mm3 (4.4-11.0)
--- NOTE | 2019-01-12 23:22 | PCM.OPRPT ---
Problem List (1) Delayed hemorrhage Status: Acute (2) Retained products of conception with hemorrhage Status: Acute Report of Operation Date of Procedure: 01/12/19 Pre-Operative Diagnosis: Delayed hemorrhage Post-Operative Diagnosis: Delayed hemorrhage Surgery/Procedure Performed:: Suction dilation and curettage Type of Anesthesia:: Local MAC Anesthesiologist: Darin Wynne Specimen's removed: Products of conception Estimated Blood Loss (mL): 500 Fluids Replaced: 1000ml Description of Procedure: Indications: Patient is a 28-year-old para 2 who presents 12 days status post uncomplicated spontaneous vaginal delivery with delayed hemorrhage. Ultrasound findings suggested retained products of conception. She was counseled on management options and opted to proceed with suction dilation and curettage. Risks, benefits, indications, alternatives of procedure were reviewed. Informed consent was obtained. Procedure: The patient was taken to the operating room and Center was performed. She is placed in the dorsal supine position and induced under MAC. She was then repositioned to dorsolithotomy examination under anesthesia performed. The perineum was prepped and draped in sterile fashion straight catheterization of the bladder performed. With a speculum placed into the vagina cervix grasped the anterior cervical lip using a single-tooth tenaculum. Paracervical block was placed using a total of 20 cc of 1% lidocaine with 1 and 100,000 epinephrine. The cervix was notably dilated approximately 1-1/2 cm. Suction curettage was performed using the 11 mm curved curette retrieving scant tissue with abundant clot. This was followed by sharp curettage retrieving clots however on repeat suction curettage blood and clots were again obtained. Vigorous bimanual uterine massage was performed the patient was given a single dose of of IM Methergine. Bedside ultrasound was then performed demonstrating reaccumulation of hematometra. I did attempt to reduce it once again using the sharp curettage under ultrasound guidance however he could see the uterus refill partially with blood. It was again evacuated from the uterus using suction and a 28 [place] Muhammad catheter was placed and filled with 30 cc of normal saline to provide urine [place] nod. There is no evidence of clot reaccumulation on ultrasound after Muhammad placement. A leg bag was attached. The procedure was completed. The tenaculum was removed from the cervix and tenaculum site was hemostatic. The speculum was removed from the vagina. The patient was placed in the dorsal supine position, awakened and transferred to the recovery room without other complication. Sponge counts were correct x2. The patient tolerated the procedure well. - Complications None - Admit VTE Documentation VTE Present on Admission: No VTE Mechan Device Prophylaxis: None VTE Pharm Prophylaxis ordered?: No
[2019-01-12 23:33] LABS: International Normalized Ratio 1.4
[2019-01-12 23:34] LABS: Partial Thromboplast Time 30.9 Seconds (24.1-36.2)
[2019-01-12 23:38] LABS: Fibrinogen 182 mg/dl (203-444)
[2019-01-13] VITALS (18 sets, daily range): BP systolic 82–133; BP diastolic 47–82; PULSE 54–111; RESP 16–18; TEMP 36.4–37.5; O2SAT 95–100
[2019-01-13] MEDS: 0.9% Normal Saline 1,000 ML 125 ML IV (06:35)
[2019-01-13 07:01] LABS: Hematocrit 23.8 % (37-47); Mean Corp Hgb Conc 33.6 g/gl (32-36); Mean Corpuscular Hgb 32.4 pg (27.0-32.0); Mean Corpuscular Volume 96.4 fL (81-99); Mean Platelet Vol. 9.2 fl (6.2-12.0); Platelet Count 201 K/mm3 (150-450); RBC Distribution Width CV 12.3 % (11.6-14.6); RBC Distribution Width SD 43.4 fl (35.1-43.9); Red Blood Count 2.47 M/mm3 (4.2-5.4); Scan Indicated on CBC? Y/N NO
--- NOTE | 2019-01-13 08:49 | PCM.PN.OB ---
Patient Problems: Active and Suspected Problems (Last Reviewed 12/27/18 @ 16:27 by Pallavi Shen) Delayed hemorrhage (Acute) Retained products of conception with hemorrhage (Acute) Subjective: Patient reports lightheadedness on ambulating this morning. Denies palpitations, shortness of breath or chest pain. She denies heavy bleeding overnight. Nurse indicated patient had not voided overnight. Objective: AVSS - Physical Exam General: Alert, Oriented x3, Cooperative, No apparent distress HEENT: Atraumatic, Normocephalic Lungs: Clear to auscultation, Normal air movement Cardiovascular: Regular rate, Regular Rhythm, Normal S1, Normal S2 Abdomen: Soft, Non Tender, Non-Distended Extremities: No edema, No Calf Tenderness Neurological: Neuro grossly intact Psych/Mental Status: Normal Affect, Appropriate, Alert and oriented to time, place, person, mood and affect Comment: Scant blood in uterine brooks - approx 10 cc. Vital Signs Temp Pulse Resp BP Pulse Ox 97.6 F L 73 16 88/54 L 98 01/13/19 08:23 01/13/19 08:42 01/13/19 08:23 01/13/19 08:42 01/13/19 08:23 Oxygen Delivery Method Room Air Weight: 58.967 kg Body Mass Index (BMI) 23.0 Orthostatic Vital Signs Start: 01/13/19 08:42 Freq: q24h Status: Active Protocol: Activity Type Activity Date Activity User E-Sign Co-Sign Detail Recorded Client Recorded Date Recorded By Document 01/13/19 08:42 TDW [id number] 01/13/19 08:43 TDW 01/13/19 08:42 Orthostatic Vitals Standing -Blood Pressure (90/60-120/80 mm Hg) 133/82 H -Extremity Use Left Arm -Pulse Rate (60-100 beats/min) 54 L Sitting -Blood Pressure (90/60-120/80 mm Hg) 91/54 L -Extremity Use Left Arm -Pulse Rate (60-100 beats/min) 111 H Lying -Blood Pressure (90/60-120/80 mm Hg) 88/54 L -Extremity Use Left Arm -Pulse Rate (60-100 beats/min) 73 Intake and Output for Last 24 Hours 01/11/19 01/12/19 01/13/19 23:59 23:59 23:59 Intake Total 2099 902 / 902 Output Total 100 / 100 Balance 1999 902 / 902 Laboratory Tests Past 24 Hrs 01/12/19 01/12/19 01/12/19 16:17 16:17 16:17 WBC 13.4 H RBC 4.33 Hgb 13.6 Hct 40.9 MCV 94.5 MCH 31.4 MCHC 33.3 RDW 12.0 RDW Differential 40.9 Plt Count 398 MPV 9.5 Immature Gran % (Auto) 0.300 Neut % (Auto) 78.7 H Lymph % (Auto) 15.9 L [place] % (Auto) 4.0 Eos % (Auto) 1.0 Baso % (Auto) 0.1 Absolute Neuts (auto) 10.6 H Absolute Lymphs (auto) 2.13 Total Counted Not Reportable PT INR APTT Fibrinogen Sodium 139 Potassium 3.6 Chloride 109 H Carbon Dioxide 22.0 Anion Gap 8 BUN 16 Creatinine 0.93 Estim Creat Clear Calc 77.08 Est GFR (MDRD) Af Amer 92 Est GFR (MDRD) Non-Af 76 BUN/Creatinine Ratio 17.2 Glucose 143 H Calcium 8.4 L Blood Type B POSITIVE A1 Antigen Typing Rho(D) Type Antibody Screen Crossmatch 01/12/19 01/12/19 01/12/19 16:17 16:17 23:00 WBC 10.5 RBC 3.06 L Hgb 9.9 L Hct 29.6 L MCV 96.7 MCH 32.4 H MCHC 33.4 RDW 12.3 RDW Differential 43.2 Plt Count 280 MPV 9.0 Immature Gran % (Auto) Neut % (Auto) Lymph % (Auto) [place] % (Auto) Eos % (Auto) Baso % (Auto) Absolute Neuts (auto) Absolute Lymphs (auto) Total Counted PT INR APTT Fibrinogen Sodium Potassium Chloride Carbon Dioxide Anion Gap BUN Creatinine Estim Creat Clear Calc Est GFR (MDRD) Af Amer Est GFR (MDRD) Non-Af BUN/Creatinine Ratio Glucose Calcium Blood Type Cancelled Cancelled A1 Antigen Typing Cancelled Cancelled Rho(D) Type Cancelled Cancelled Antibody Screen NEGATIVE Cancelled Crossmatch See Detail 01/12/19 01/13/19 23:10 06:14 WBC 6.0 RBC 2.47 L Hgb 8.0 L Hct 23.8 L MCV 96.4 MCH 32.4 H MCHC 33.6 RDW 12.3 RDW Differential 43.4 Plt Count 201 MPV 9.2 Immature Gran % (Auto) Neut % (Auto) Lymph % (Auto) [place] % (Auto) Eos % (Auto) Baso % (Auto) Absolute Neuts (auto) Absolute Lymphs (auto) Total Counted PT 17.0 H INR 1.4 APTT 30.9 Fibrinogen 182 L Sodium Potassium Chloride Carbon Dioxide Anion Gap BUN Creatinine Estim Creat Clear Calc Est GFR (MDRD) Af Amer Est GFR (MDRD) Non-Af BUN/Creatinine Ratio Glucose Calcium Blood Type A1 Antigen Typing Rho(D) Type Antibody Screen Crossmatch Medical Necessity - Tobacco Use Smoking Status: Never smoker Assessment/Plan All Active Problems (Last Reviewed 12/27/18 @ 16:27 by Pallavi Shen) Delayed hemorrhage (Acute) Retained products of conception with hemorrhage (Acute) Anemia affecting (Acute) (Acute) Supervision of high-risk (Acute) History of LEEP (loop electrosurgical excision procedure) of cervix complicating (Acute) This is a 28 year-old, G [2], P [2] admitted with delayed hemorrhage with retained products of conception -hemodynamically stable. -Uterine brooks with scant output removed this am. Will monitor pad count. -Orthostatic vitals positive. Will transfuse PRBC. Reviewed with patient and transfusion indications. Risks including TRALE, anaphylaxis discussed as well as common side effects including itching, rash, fever, cough. Low risk for communicable infection. Patient agreeable. -Methergine PO ordered.
--- NOTE | 2019-01-13 09:01 | DCINST_ITS ---
Discharge Diet: No Restrictions Discharge Activity: Return to Normal Activity, May Shower, - - No driving for 24-48 hours May resume sexual activity in: - - 2-4 weeks Lifting Restrictions: 20 lb Call your doctor if you observe: Fever of 101 or Higher, Inability to urinate, Inability to have a bowel movement, Using more than one pad per hour, Shortness of breath, Dizziness, Chest pain, Calf discomfort, Uncontrolled pain Instructions: Anemia Allergies/Adverse Reactions: Allergies casein Allergy (Mild, Verified 12/28/18 15:47) fatigue, migraines, acne whey Allergy (Mild, Verified 12/28/18 15:47) fatigue, migraines, acne Medications to take at Discharge docosahexanoic acid 200 mg capsule 1 tab PO DAILY 05/29/18 ferrous sulfate 325 mg (65 mg iron) tablet 325 mg PO DAILY tab 10/26/18 Primary Care Physician: Haily Leary MD [STAFF PHYSICIAN] - Test Results: Test results from this visit will be discussed in further detail at your follow- up appointment, if applicable. Please Follow Up With: Haily Leary MD - 3-7 days
[2019-01-13] MEDS: Ondansetron 4 MG/2 ML Vial IV (09:35)
[2019-01-13] MEDS: Acetaminophen 500 MG Tablet 1000 MG PO (09:40)
[2019-01-13] MEDS: Ferrous Gluconate 324 MG Tablet PO ×2 (11:57→16:18)
[2019-01-13] MEDS: DiphenhydrAMINE 25 MG Capsule PO (11:57)
[2019-01-13 15:33] LABS: Hematocrit 30.9 % (37-47); Hemoglobin 10.3 g/dl (12.0-15.0); Mean Corp Hgb Conc 33.3 g/gl (32-36); Mean Corpuscular Hgb 31.5 pg (27.0-32.0); Mean Corpuscular Volume 94.5 fL (81-99); Mean Platelet Vol. 9.1 fl (6.2-12.0); Platelet Count 188 K/mm3 (150-450); RBC Distribution Width CV 13.5 % (11.6-14.6); RBC Distribution Width SD 46.7 fl (35.1-43.9); Red Blood Count 3.27 M/mm3 (4.2-5.4); White Blood Count 5.5 K/mm3 (4.4-11.0)
[2019-01-13 15:38] LABS: Scan Indicated on CBC? Y/N NO
[2019-01-13 16:13] LABS: International Normalized Ratio 1.4; Prothrombin Time (Protime)PT. 16.6 SECONDS (11.7-14.9)
--- NOTE | 2019-01-16 22:01 | PCM.DC.SUM ---
Discharge Date and Diagnosis Date of Admission: 01/12/19 Date of Discharge: 01/13/19 Hospital Course and Treatment Operations: - - Suction dilation and curettage Procedures: None Summary of Care Provided: The patient is a 28 year old F 2 para 2 presented approximately 2 weeks s/p uncomplicated with delayed hemorrhage. She had an US guided suction dilation and curettage. The uterus continued to fill with blood and clot following evacuation, thus a brooks balloon was placed in the uterine cavity for tamponade. She was observed overnight with mild coagulopathy and anemia. She received 2U PRBC. The brooks had minimal output was removed on hospital day #2 with resolution of heavy bleeding. Patient was discharged to home on hospital day #2. - Physical Exam Vital Signs Temp Pulse Resp BP Pulse Ox 99 F 69 16 105/64 97 01/13/19 14:09 01/13/19 14:09 01/13/19 14:09 01/13/19 14:09 01/13/19 14:09 Oxygen Delivery Method Room Air Weight: 58.967 kg Body Mass Index (BMI) 23.0 Discharge Diet: No Restrictions Discharge Activity: Return to Normal Activity, May Shower, - - No driving for 24-48 hours May resume sexual activity in: - - 2-4 weeks Call your doctor if you observe: Fever of 101 or Higher, Inability to urinate, Inability to have a bowel movement, Using more than one pad per hour, Shortness of breath, Dizziness, Chest pain, Calf discomfort, Uncontrolled pain Home Medications: Medications to take at Discharge docosahexanoic acid 200 mg capsule 1 tab PO DAILY 05/29/18 ferrous sulfate 325 mg (65 mg iron) tablet 325 mg PO DAILY tab 10/26/18 Primary Care Physician: Haily Leary MD [STAFF PHYSICIAN] - Please Follow Up With: Haily Leary MD - 3-7 days Patient Instructions: Anemia Medical Necessity - Tobacco Use Smoking Status: Never smoker Meaningful Use Info Meaningful Use Diagnoses (Choose all that apply): None applicable
== END 2019-01-13 17:30 | disposition home or self-care (01) ==
LOC: ED 18:22 → SDC 21:06 → AC 21:06 → SDC 23:10 → MS2 01-15 06:26
PROVIDERS: Emergency Provider Emergency Medicine; Visit Provider Obstetrics & Gynecology
PROC: (CPT 59160; principal; 2019-01-12 21:15)
DX: O72.2 Delayed and secondary postpartum hemorrhage (principal); O99.03 Anemia complicating the puerperium; D64.9 Anemia, unspecified; O90.89 Other complications of the puerperium, not elsewhere classified; R10.2 Pelvic and perineal pain
CPT/HCPCS: 00940; 59160; 36415; 36430; 76830; 80048; 85025; 85027; 85384; 85610; 85730; 86850; 86900; 86920; 88305; 93976; 99282; J7030; J7040; J7120; P9016; A4216; J2405

== ENCOUNTER → 2020-01-14 | Outpatient (CLI) | payer BC, SELFPAY ==
[2020-01-08 11:00] VITALS: BMI 23.0
--- NOTE | 2020-01-14 | FLU_PTH ---
PATIENT: KEIKO SOSA LOC: [facility] U#:[id number] AGE/SX: 29/F ROOM: RE01/14/[address]: Dr. Marek Gomez MD : 1990 BED: DIS: 01/14/2020 SPEC #: [id number] RECD: 01/15/20 12:16 STATUS: KISHORE TESSA #: [id number] TAYLA: 01/14/20 00:[address]: Marek Gomez DEPT: CYTOLOGY RECD BY: Lasha Samano ENTERED: 01/15/20 12:16 SP TYPE: Fluid OTHR DR: Dr. Haily Leary MD No Primary Care Phys Tissues: Right breast, NOS Procedures: Special Stain Group II Surgery Specimen Level IV Cytospin Fluid HEADER OPERATION: Right breast aspirate PRE-OP DIAGNOSIS: Right breast lump TISSUE SUBMITTED: Right breast aspirate DIAGNOSIS CYTOLOGY Right breast, fine needle aspiration (cytospin and cell block): Acute inflammation. AM:kassie 01/16/20 CYTOLOGY STUDY Slides are reviewed. CYTOLOGY GROSS Received is <0.25 ml of red cloudy fluid labeled with the patient's name and and designated per the requisition as right breast. Submitted for cytology preparation including cell block. / kassie 01/15/20 TC:5 CPT: 59316, 86925
[2020-01-14 13:09] VITALS: BMI 21.1
--- NOTE | 2020-01-14 13:31 | BI_ITS ---
MAMMOGRAPHY - BILATERAL DIAGNOSTIC REASON FOR EXAM: Female, 29 years old. One-week history of right breast lump with some tenderness. PERTINENT HISTORY: Non-contributory. TECHNIQUE: Digital bilateral breast amy (3D mammographic acquisition) in the CC and MLO projections. 2-D mediolateral oblique (MLO) and craniocaudad (CC) views of both breasts were obtained. CAD: Full Field Digital Mammography with Computer Added Detection was performed. COMPARISON: None. Baseline examination. FINDINGS: Breast Composition: The breasts are extremely dense, which lowers the sensitivity of mammography. There are no dominant masses or suspicious calcifications. Questionable area of asymmetry in the deep slightly medial aspect of the left breast on the craniocaudad view. No other significant abnormalities are identified. BI/DIAG MAMM W/CAD, BILAT IMPRESSION: Possible area of asymmetry seen on the deep medial aspect of the left craniocaudad view. Correlation with ultrasound of the left breast to assess this area as well as the palpable area in the right breast is recommended. ASSESSMENT CATEGORY: BIRADS Category 0: Incomplete. Need additional imaging evaluation. A letter regarding these results will be sent to the patient by the facility within 30 days. Approximately 10% of breast cancers are not detected by mammography. A normal mammogram should not delay biopsy of a clinically suspicious abnormality. Electronically Signed: Ghassan Fleming, at 14:30 EDT , Service support ,
--- NOTE | 2020-01-14 13:31 | US_ITS ---
STUDY: ULTRASOUND BREAST - RIGHT REASON FOR EXAM: Female, 29 years old. Palpable abnormality in the upper outer quadrant of the right breast. TECHNIQUE: Axial and longitudinal images of the RIGHT breast were performed with a high resolution ultrasound transducer. # OF IMAGES: 31 COMPARISON: Comparison is made with prior mammogram done earlier today. FINDINGS: RIGHT Breast: The palpable abnormality corresponds to a 1.3 cm x 0.9 cm x 0.9 cm cyst at the 10:00 position of the breast at 6 cm from the nipple. IMPRESSION: The palpable abnormality corresponds to a 1.3 cm x 0.9 cm x 0.9 cm cyst at the 10:00 position of the breast at 6 cm from nipple. ASSESSMENT CATEGORY: BIRADS Category 2: Benign. A letter regarding these results will be sent to the patient by the facility within 30 days. Electronically Signed: Ghassan Fleming, at 14:41 EDT , Service support , STUDY: ULTRASOUND BREAST - LEFT REASON FOR EXAM: Female, 29 years old. Abnormal screening mammogram. TECHNIQUE: Axial and longitudinal images of the LEFT breast were performed with a high resolution ultrasound transducer. # OF IMAGES: 31 COMPARISON: Comparison is made with prior mammogram done earlier in the day. FINDINGS: LEFT Breast: The central portion of the left breast was examined by ultrasound. No sonographic abnormalities seen. US/Breast Limited Unilateral IMPRESSION: No sonographic abnormalities are seen. ASSESSMENT CATEGORY: BIRADS Category 1: Negative. A letter regarding these results will be sent to the patient by the facility within 30 days. Electronically Signed: Ghassan Fleming, at 14:41 EDT , Service support ,
[2020-01-14 16:19] LABS: Cytology, Body Fluid / CSF SEE PATHOLOGY REPORT
== END | disposition home or self-care (01) ==
LOC: OPBI 14:07 → LAB 16:02 → LABSPEC 16:08
PROVIDERS: Referring Provider Obstetrics & Gynecology; Visit Provider Surgery
DX: N63.13 Unspecified lump in the right breast, lower outer quadrant (principal)
CPT/HCPCS: 76642; 77062; 77066; 87070; 87075; 87205; 88108; 88305; 88313; G0279